=== PATIENT | female | born 1975 | race American Indian/Alaskan Native ===

== ENCOUNTER 2021-09-10 21:57 | Inpatient (IN) ==
[2021-09-11 01:19] LABS: Basophils % 0.2 % (0.0-0.8); Eosinophils % 0.2 % (0.00-10.9); Hematocrit 25.4 VOL% (35.7-47.0); Hemoglobin 8.7 GM/DL (12.0-16.0); Immature Granulocytes % 1.3 %; Immature Granulocytes Absolute 0.12 #; Lymphocytes # 1.4 10*3/uL (1.4-4.0); Lymphocytes % 15.7 % (21.3-54.2); Mean Corpuscular HGB Conc 34.3 GM/DL (32-36); Mean Corpuscular Volume 89.8 FL (87-102); Mean Platelet Volume 12.2 FL (9.6-12.0); Monocytes % 11.3 % (1.7-12.7); NRBC # 0.03 10*3/uL; Neutrophils % 71.3 % (38.7-73.9); Platelet Count 60 T/CUMM (130-400); Red Blood Count 2.83 MC/CUMM (3.8-5.5)
[2021-09-11 01:40] LABS: Calcium 6.7 MG/DL (8.5-10.1); Osmolality,Calculated 269.4 MOS/KG (273-304); Potassium 2.6 MMOL/L (3.5-5.1)
[2021-09-11 01:59] LABS: Lymphocytes 29 % (20-55)
[2021-09-11 02:00] LABS: Platelet Estimate Decreased; Total Cells Counted 100
[2021-09-11 02:03] LABS: INR 1.1; PT Patient Result 12.3 SECS (10.5-12.0); Partial Thromboplastin Time 30.6 SECS (23.8-32.1)
[2021-09-11] MEDS ORDERED: MAGNESIUM SULF RIDER 4 GM/100 ML PREMIX IV PRN (02:11)
[2021-09-11] MEDS ORDERED: ONDANSETRON 4 MG/2 ML VIAL IV PRN (02:11)
[2021-09-11] MEDS ORDERED: hydrALAZINE 20 MG/1 ML VIAL IV PRN (02:11)
[2021-09-11] MEDS ORDERED: MAGNESIUM SULF RIDER 2 GM/50 ML PREMIX IV PRN (02:11)
[2021-09-11] MEDS ORDERED: SIMETHICONE CHEW 125 MG TABLET PO PRN (02:11)
[2021-09-11] MEDS ORDERED: GLUCAGON 1 MG VIAL IM PRN (02:11)
[2021-09-11] MEDS ORDERED: HYDROmorphone 1 MG/1 ML SYRINGE IV PRN (02:19)
[2021-09-11] MEDS ORDERED: DEXTROSE 10% 250 ML BAG IV PRN (02:22)
[2021-09-11] MEDS: ENOXAPARIN 40 MG/0.4 ML SYRINGE SUBCUT SCH (03:47)
[2021-09-11] MEDS: SODIUM CHLOR 0.9% KCL 20 MEQ 20 MEQ/1,000 ML BAG IV SCH ×2 (03:47→16:02)
[2021-09-11] MEDS: PIPERACILLIN/TAZOBACTAM 3,375 MG in SODIUM CHLORIDE 0.9% 100 ML IV SCH ×3 (03:47→21:43)
[2021-09-11 05:11] LABS: Albumin 1.5 G/DL (3.4-5.0); Bilirubin,Direct 0.46 MG/DL (0.0-0.20); Bilirubin,Indirect 0.4 MG/DL (0.0-1.0); Bilirubin,Total 0.9 MG/DL (0.20-1.00); Total Protein 7.8 G/DL (6.4-8.2)
[2021-09-11] MEDS: POTASSIUM CHLORIDE 20 MEQ TABLET PO SCH ×3 (05:46→21:43)
[2021-09-11 06:17] LABS: Hepatitis B Surface Ag Quant 0.19 Index; Hepatitis B Surface Ag Result Non-Reactive (NonReactive); Hepatitis C Virus Ab Quant 0.09 Index; Hepatitis C Virus Ab Result Non-Reactive (NonReactive)
[2021-09-11 07:20] LABS: RBC,Urine 8 /HPF (0-4); Squamous Epithelial Cell,Urine Occasional /HPF (0-10)
[2021-09-11 07:21] LABS: Bilirubin,Urine Negative (Negative); Blood, Urine Large mg/dL (Negative); Glucose,Urine (UA) Negative (Negative); Ketones,Urine Negative (Negative); Nitrite,Urine Negative (Negative); Protein,Urine 30 mg/dL (Negative); Urine Appearance Clear (Clear); Urine Color Yellow (Yellow)
[2021-09-11] MEDS: POTASSIUM CHLORIDE RIDER 10 MEQ/100 ML PREMIX IV PRN ×3 (08:15→17:33)
[2021-09-11] MEDS: INSULIN REGULAR 100 UNIT/ML SUBCUT SCH ×4 (08:31→21:44)
[2021-09-11] MEDS: DOCUSATE SODIUM 100 MG CAPSULE PO SCH ×2 (09:01→21:43)
[2021-09-11 09:04] LABS: Calcium 6.8 MG/DL (8.5-10.1); Osmolality,Calculated 272.1 MOS/KG (273-304); Potassium 3.2 MMOL/L (3.5-5.1)
[2021-09-11] MEDS: PANTOPRAZOLE 40 MG TABLET PO SCH (09:06)
[2021-09-11 11:23] LABS: INR 1.1; PT Patient Result 12.3 SECS (10.5-12.0)
[2021-09-11] MEDS ORDERED: fentaNYL 100 MCG/2 ML VIAL IV ONE (13:00)
[2021-09-11] MEDS ORDERED: MIDAZOLAM 2 MG/2 ML VIAL IV ONE (13:00)
[2021-09-11] MEDS ORDERED: DIAZEPAM 5 MG TABLET PO ONE (13:00)
[2021-09-11] MEDS: SODIUM CHLORIDE 0.45% 1,000 ML IV SCH (13:30)
[2021-09-12] MEDS: ENOXAPARIN 40 MG/0.4 ML SYRINGE SUBCUT SCH (03:59)
[2021-09-12 04:58] LABS: Basophils % 0.3 % (0.0-0.8); Eosinophils # 0.1 10*3/uL (0.0-0.87); Eosinophils % 0.8 % (0.00-10.9); Hematocrit 22.1 VOL% (35.7-47.0); Hemoglobin 7.3 GM/DL (12.0-16.0); Immature Granulocytes % 1.5 %; Immature Granulocytes Absolute 0.22 #; Lymphocytes # 1.6 10*3/uL (1.4-4.0); Lymphocytes % 11.2 % (21.3-54.2); Mean Corpuscular Volume 93.2 FL (87-102); Mean Platelet Volume 10.6 FL (9.6-12.0); Monocytes # 1.6 10*3/uL (0.11-0.8); Monocytes % 10.8 % (1.7-12.7); NRBC # 0.03 10*3/uL; Neutrophils % 75.4 % (38.7-73.9); Platelet Count 78 T/CUMM (130-400); Red Blood Count 2.37 MC/CUMM (3.8-5.5); Red Cell Distribution Width 15.4 % (9.3-17.3); White Blood Count 14.6 T/CUMM (4-12)
[2021-09-12 05:20] LABS: Band Neutrophils 1 % (0-10); Hypochromia 1+; Lymphocytes 10 % (20-55); Total Cells Counted 100
[2021-09-12 05:21] LABS: Microcytosis 1+; Platelet Estimate Decreased
[2021-09-12] MEDS: PIPERACILLIN/TAZOBACTAM 3,375 MG in SODIUM CHLORIDE 0.9% 100 ML IV SCH ×3 (05:30→21:08)
[2021-09-12 05:35] LABS: Albumin 1.4 G/DL (3.4-5.0); Bilirubin,Total 0.9 MG/DL (0.20-1.00); Calcium 6.8 MG/DL (8.5-10.1); Osmolality,Calculated 262.8 MOS/KG (273-304); Potassium 3.9 MMOL/L (3.5-5.1); Total Protein 7.5 G/DL (6.4-8.2)
[2021-09-12] MEDS: SODIUM CHLOR 0.9% KCL 20 MEQ 20 MEQ/1,000 ML BAG IV SCH ×3 (07:15→18:15)
[2021-09-12] MEDS: INSULIN REGULAR 100 UNIT/ML SUBCUT SCH ×4 (08:18→21:08)
[2021-09-12] MEDS: DOCUSATE SODIUM 100 MG CAPSULE PO SCH ×2 (09:08→21:07)
[2021-09-12] MEDS: PANTOPRAZOLE 40 MG TABLET PO SCH (09:08)
[2021-09-12] MEDS: POTASSIUM CHLORIDE 20 MEQ TABLET PO SCH ×2 (09:08→21:07)
[2021-09-12 11:39] LABS: Hematocrit 21.3 VOL% (35.7-47.0)
[2021-09-12 13:23] LABS: Hematocrit 20.7 VOL% (35.7-47.0); Hemoglobin 6.8 GM/DL (12.0-16.0)
[2021-09-12 13:40] LABS: Calcium 6.9 MG/DL (8.5-10.1); Osmolality,Calculated 264.7 MOS/KG (273-304); Potassium 4.2 MMOL/L (3.5-5.1)
[2021-09-12] MEDS: SODIUM CHLORIDE 0.45% 1,000 ML IV SCH (14:43)
[2021-09-12] MEDS ORDERED: SODIUM CHLORIDE 0.9% 1,000 ML IV PRN (14:49)
[2021-09-12] MEDS: LACTULOSE 20 GM/30 ML UDCUP PO SCH ×2 (14:57→21:07)
[2021-09-13 05:23] LABS: Basophils % 0.3 % (0.0-0.8); Eosinophils # 0.1 10*3/uL (0.0-0.87); Hematocrit 24.3 VOL% (35.7-47.0); Hemoglobin 7.9 GM/DL (12.0-16.0); Immature Granulocytes % 1.7 %; Lymphocytes # 1.6 10*3/uL (1.4-4.0); Lymphocytes % 13.3 % (21.3-54.2); Mean Corpuscular HGB Conc 32.5 GM/DL (32-36); Mean Platelet Volume 10.9 FL (9.6-12.0); Monocytes % 8.1 % (1.7-12.7); NRBC # 0.02 10*3/uL; Neutrophils % 75.6 % (38.7-73.9); Platelet Count 102 T/CUMM (130-400); Red Blood Count 2.64 MC/CUMM (3.8-5.5); Red Cell Distribution Width 15.9 % (9.3-17.3); White Blood Count 12.1 T/CUMM (4-12)
[2021-09-13] MEDS: PIPERACILLIN/TAZOBACTAM 3,375 MG in SODIUM CHLORIDE 0.9% 100 ML IV SCH ×3 (05:33→22:18)
[2021-09-13] MEDS: SODIUM CHLOR 0.9% KCL 20 MEQ 20 MEQ/1,000 ML BAG IV SCH (05:34)
[2021-09-13 05:45] LABS: Albumin 1.3 G/DL (3.4-5.0); Bilirubin,Total 1.2 MG/DL (0.20-1.00); Calcium 7.4 MG/DL (8.5-10.1); Osmolality,Calculated 261.7 MOS/KG (273-304); Total Protein 7.4 G/DL (6.4-8.2)
[2021-09-13] MEDS: INSULIN REGULAR 100 UNIT/ML SUBCUT SCH ×4 (08:23→21:40)
[2021-09-13] MEDS: LACTULOSE 20 GM/30 ML UDCUP PO SCH (08:32)
[2021-09-13] MEDS: DOCUSATE SODIUM 100 MG CAPSULE PO SCH ×2 (08:32→21:40)
[2021-09-13] MEDS: PANTOPRAZOLE 40 MG TABLET PO SCH (08:32)
[2021-09-13] MEDS: POTASSIUM CHLORIDE 20 MEQ TABLET PO SCH (08:32)
[2021-09-13] MEDS: SODIUM CHLORIDE 0.9% 1,000 ML IV SCH ×2 (12:15→22:16)
[2021-09-13] MEDS: SODIUM CHLORIDE 0.45% 1,000 ML IV SCH (12:19)
[2021-09-13] MEDS: ACETAMINOPHEN 325 MG TABLET PO PRN (12:30)
[2021-09-14 04:53] LABS: Basophils % 0.2 % (0.0-0.8); Eosinophils # 0.2 10*3/uL (0.0-0.87); Eosinophils % 2.2 % (0.00-10.9); Hematocrit 22.8 VOL% (35.7-47.0); Hemoglobin 7.3 GM/DL (12.0-16.0); Immature Granulocytes % 1.2 %; Lymphocytes # 1.3 10*3/uL (1.4-4.0); Lymphocytes % 14.9 % (21.3-54.2); Mean Corpuscular Volume 92.3 FL (87-102); Mean Platelet Volume 10.4 FL (9.6-12.0); Monocytes # 0.9 10*3/uL (0.11-0.8); Monocytes % 10.3 % (1.7-12.7); Neutrophils % 71.2 % (38.7-73.9); Platelet Count 113 T/CUMM (130-400); Red Blood Count 2.47 MC/CUMM (3.8-5.5); Red Cell Distribution Width 15.9 % (9.3-17.3); White Blood Count 8.6 T/CUMM (4-12)
[2021-09-14 05:14] LABS: Band Neutrophils 1 % (0-10); Eosinophils 1 % (0-10); Hypochromia Slight; Lymphocytes 14 % (20-55); Total Cells Counted 100
[2021-09-14 05:15] LABS: Microcytosis 1+
[2021-09-14 05:20] LABS: Albumin 1.3 G/DL (3.4-5.0); Bilirubin,Total 0.8 MG/DL (0.20-1.00); Calcium 7.2 MG/DL (8.5-10.1); Osmolality,Calculated 266.5 MOS/KG (273-304); Potassium 4.4 MMOL/L (3.5-5.1); Total Protein 7.1 G/DL (6.4-8.2)
[2021-09-14] MEDS: PIPERACILLIN/TAZOBACTAM 3,375 MG in SODIUM CHLORIDE 0.9% 100 ML IV SCH ×3 (05:54→21:27)
[2021-09-14] MEDS: LACTULOSE 20 GM/30 ML UDCUP PO SCH (08:53)
[2021-09-14] MEDS: DOCUSATE SODIUM 100 MG CAPSULE PO SCH ×2 (08:53→21:57)
[2021-09-14] MEDS: PANTOPRAZOLE 40 MG TABLET PO SCH (08:53)
[2021-09-14] MEDS: INSULIN REGULAR 100 UNIT/ML SUBCUT SCH ×4 (09:24→21:57)
[2021-09-14] MEDS: SODIUM CHLORIDE 0.9% 1,000 ML IV SCH ×2 (09:25→17:00)
[2021-09-14] MEDS: SODIUM CHLORIDE 0.45% 1,000 ML IV SCH (13:02)
[2021-09-15] MEDS: PIPERACILLIN/TAZOBACTAM 3,375 MG in SODIUM CHLORIDE 0.9% 100 ML IV SCH ×3 (05:25→20:30)
[2021-09-15 08:17] LABS: Basophils % 0.4 % (0.0-0.8); Eosinophils # 0.2 10*3/uL (0.0-0.87); Eosinophils % 2.3 % (0.00-10.9); Hematocrit 22.5 VOL% (35.7-47.0); Hemoglobin 7.3 GM/DL (12.0-16.0); Immature Granulocytes % 1.3 %; Lymphocytes # 1.3 10*3/uL (1.4-4.0); Lymphocytes % 16.1 % (21.3-54.2); Mean Corpuscular HGB Conc 32.4 GM/DL (32-36); Mean Corpuscular Volume 91.8 FL (87-102); Neutrophils % 66.9 % (38.7-73.9); Platelet Count 125 T/CUMM (130-400); Red Blood Count 2.45 MC/CUMM (3.8-5.5); Red Cell Distribution Width 15.9 % (9.3-17.3); White Blood Count 7.7 T/CUMM (4-12)
[2021-09-15] MEDS: INSULIN REGULAR 100 UNIT/ML SUBCUT SCH ×4 (08:28→20:41)
[2021-09-15 08:34] LABS: Osmolality,Calculated 261.5 MOS/KG (273-304); Potassium 4.4 MMOL/L (3.5-5.1)
[2021-09-15] MEDS ORDERED: LACTULOSE 20 GM/30 ML UDCUP PO SCH (09:00)
[2021-09-15] MEDS: DOCUSATE SODIUM 100 MG CAPSULE PO SCH ×2 (09:18→20:42)
[2021-09-15] MEDS: PANTOPRAZOLE 40 MG TABLET PO SCH (09:18)
[2021-09-15] MEDS: SODIUM CHLORIDE 0.45% 1,000 ML IV SCH (13:01)
[2021-09-15] MEDS: SODIUM CHLORIDE 0.9% 1,000 ML IV SCH ×2 (13:01→16:35)
[2021-09-15 19:22] LABS: Bacteria,Urine Occasional /HPF (Few); RBC,Urine 24 /HPF (0-4); Squamous Epithelial Cell,Urine Occasional /HPF (0-10)
[2021-09-15 19:23] LABS: Bilirubin,Urine Negative (Negative); Blood, Urine Large mg/dL (Negative); Glucose,Urine (UA) Negative (Negative); Ketones,Urine Negative (Negative); Nitrite,Urine Negative (Negative); Protein,Urine Negative (Negative); Urine Appearance Clear (Clear); Urine Color Yellow (Yellow); Urine pH 6.5 (4.5-8.0)
[2021-09-15] MEDS: POLYETHYLENE GLYCOL POWDER 17 GM PACK PO SCH (20:30)
[2021-09-15] MEDS: LACTULOSE 20 GM/30 ML UDCUP PO SCH (20:30)
[2021-09-15] MEDS: ALBUTEROL 2.5 MG/3 ML NEB RESP TX SCH ×2 (21:00→21:38)
[2021-09-16 04:48] LABS: Basophils % 0.4 % (0.0-0.8); Eosinophils # 0.1 10*3/uL (0.0-0.87); Eosinophils % 1.5 % (0.00-10.9); Hematocrit 22.3 VOL% (35.7-47.0); Hemoglobin 7.3 GM/DL (12.0-16.0); Immature Granulocytes % 0.8 %; Immature Granulocytes Absolute 0.06 #; Lymphocytes # 1.3 10*3/uL (1.4-4.0); Lymphocytes % 18.2 % (21.3-54.2); Mean Corpuscular HGB Conc 32.7 GM/DL (32-36); Mean Corpuscular Volume 91.4 FL (87-102); Mean Platelet Volume 9.9 FL (9.6-12.0); Monocytes % 14.1 % (1.7-12.7); Platelet Count 123 T/CUMM (130-400); Red Blood Count 2.44 MC/CUMM (3.8-5.5); Red Cell Distribution Width 15.6 % (9.3-17.3); White Blood Count 7.2 T/CUMM (4-12)
[2021-09-16 05:18] LABS: Albumin 1.4 G/DL (3.4-5.0); Bilirubin,Total 0.8 MG/DL (0.20-1.00); Calcium 7.2 MG/DL (8.5-10.1); Osmolality,Calculated 259.7 MOS/KG (273-304); Potassium 4.2 MMOL/L (3.5-5.1)
[2021-09-16] MEDS: ENOXAPARIN 40 MG/0.4 ML SYRINGE SUBCUT SCH (06:13)
[2021-09-16] MEDS: PIPERACILLIN/TAZOBACTAM 3,375 MG in SODIUM CHLORIDE 0.9% 100 ML IV SCH ×3 (06:14→21:16)
[2021-09-16] MEDS: ALBUTEROL 2.5 MG/3 ML NEB RESP TX SCH ×2 (07:28→14:05)
[2021-09-16] MEDS: LACTULOSE 20 GM/30 ML UDCUP PO SCH ×2 (09:29→21:19)
[2021-09-16] MEDS: POLYETHYLENE GLYCOL POWDER 17 GM PACK PO SCH ×2 (09:29→21:19)
[2021-09-16] MEDS: ACETAMINOPHEN 325 MG TABLET PO PRN (09:30)
[2021-09-16] MEDS: DOCUSATE SODIUM 100 MG CAPSULE PO SCH ×2 (09:30→21:19)
[2021-09-16] MEDS: PANTOPRAZOLE 40 MG TABLET PO SCH (09:30)
[2021-09-16] MEDS: LINACLOTIDE 145 MCG CAPSULE PO SCH (09:30)
[2021-09-16] MEDS: SODIUM CHLORIDE 0.9% 1,000 ML IV SCH ×3 (09:31→21:16)
[2021-09-16] MEDS: INSULIN REGULAR 100 UNIT/ML SUBCUT SCH ×4 (10:33→23:36)
[2021-09-16] MEDS: SODIUM CHLORIDE 0.45% 1,000 ML IV SCH (13:58)
[2021-09-17 05:04] LABS: Basophils % 0.7 % (0.0-0.8); Eosinophils # 0.1 10*3/uL (0.0-0.87); Eosinophils % 1.9 % (0.00-10.9); Hematocrit 23.1 VOL% (35.7-47.0); Hemoglobin 7.5 GM/DL (12.0-16.0); Immature Granulocytes % 0.7 %; Immature Granulocytes Absolute 0.04 #; Lymphocytes % 17.4 % (21.3-54.2); Mean Corpuscular HGB Conc 32.5 GM/DL (32-36); Mean Corpuscular Volume 93.1 FL (87-102); Mean Platelet Volume 10.2 FL (9.6-12.0); Monocytes # 0.9 10*3/uL (0.11-0.8); Monocytes % 15.2 % (1.7-12.7); Neutrophils % 64.1 % (38.7-73.9); Platelet Count 141 T/CUMM (130-400); Red Blood Count 2.48 MC/CUMM (3.8-5.5); Red Cell Distribution Width 15.9 % (9.3-17.3); White Blood Count 5.9 T/CUMM (4-12)
[2021-09-17] MEDS: PIPERACILLIN/TAZOBACTAM 3,375 MG in SODIUM CHLORIDE 0.9% 100 ML IV SCH ×3 (05:11→21:02)
[2021-09-17] MEDS: ENOXAPARIN 40 MG/0.4 ML SYRINGE SUBCUT SCH (05:11)
[2021-09-17 05:20] LABS: Albumin 1.6 G/DL (3.4-5.0); Bilirubin,Total 0.7 MG/DL (0.20-1.00); Calcium 6.9 MG/DL (8.5-10.1); Osmolality,Calculated 262.4 MOS/KG (273-304); Potassium 3.8 MMOL/L (3.5-5.1); Total Protein 8.5 G/DL (6.4-8.2)
[2021-09-17] MEDS: ALBUTEROL 2.5 MG/3 ML NEB RESP TX SCH ×4 (07:38→23:29)
[2021-09-17] MEDS: DOCUSATE SODIUM 100 MG CAPSULE PO SCH ×2 (09:51→21:02)
[2021-09-17] MEDS: PANTOPRAZOLE 40 MG TABLET PO SCH (09:51)
[2021-09-17] MEDS: LINACLOTIDE 145 MCG CAPSULE PO SCH (09:51)
[2021-09-17] MEDS: INSULIN REGULAR 100 UNIT/ML SUBCUT SCH ×4 (10:55→21:03)
[2021-09-17] MEDS: LACTULOSE 20 GM/30 ML UDCUP PO SCH ×2 (10:56→21:02)
[2021-09-17] MEDS: POLYETHYLENE GLYCOL POWDER 17 GM PACK PO SCH (10:57)
[2021-09-17] MEDS: SODIUM CHLORIDE 0.9% 1,000 ML IV SCH ×3 (11:36→15:00)
[2021-09-17] MEDS: SODIUM CHLORIDE 0.45% 1,000 ML IV SCH (11:37)
[2021-09-18 04:06] LABS: Basophils % 0.9 % (0.0-0.8); Eosinophils # 0.1 10*3/uL (0.0-0.87); Eosinophils % 2.1 % (0.00-10.9); Hematocrit 23.4 VOL% (35.7-47.0); Hemoglobin 7.5 GM/DL (12.0-16.0); Immature Granulocytes % 0.7 %; Immature Granulocytes Absolute 0.03 #; Lymphocytes # 1.1 10*3/uL (1.4-4.0); Lymphocytes % 24.4 % (21.3-54.2); Mean Corpuscular HGB Conc 32.1 GM/DL (32-36); Mean Corpuscular Volume 92.9 FL (87-102); Mean Platelet Volume 9.6 FL (9.6-12.0); Monocytes # 0.5 10*3/uL (0.11-0.8); Monocytes % 11.6 % (1.7-12.7); Neutrophils % 60.3 % (38.7-73.9); Platelet Count 130 T/CUMM (130-400); Red Blood Count 2.52 MC/CUMM (3.8-5.5); White Blood Count 4.3 T/CUMM (4-12)
[2021-09-18] MEDS: ENOXAPARIN 40 MG/0.4 ML SYRINGE SUBCUT SCH (05:25)
[2021-09-18] MEDS: PIPERACILLIN/TAZOBACTAM 3,375 MG in SODIUM CHLORIDE 0.9% 100 ML IV SCH ×3 (05:26→20:50)
[2021-09-18] MEDS: SODIUM CHLORIDE 0.9% 1,000 ML IV SCH ×3 (05:46→20:53)
[2021-09-18 05:50] LABS: Albumin 1.5 G/DL (3.4-5.0); Bilirubin,Total 0.8 MG/DL (0.20-1.00); Calcium 7.7 MG/DL (8.5-10.1); Osmolality,Calculated 262.4 MOS/KG (273-304); Potassium 3.7 MMOL/L (3.5-5.1); Total Protein 8.6 G/DL (6.4-8.2)
[2021-09-18] MEDS: ALBUTEROL 2.5 MG/3 ML NEB RESP TX SCH ×2 (07:22→14:00)
[2021-09-18] MEDS: PANTOPRAZOLE 40 MG TABLET PO SCH (09:54)
[2021-09-18] MEDS: DOCUSATE SODIUM 100 MG CAPSULE PO SCH ×2 (09:54→20:43)
[2021-09-18] MEDS: LINACLOTIDE 145 MCG CAPSULE PO SCH (09:56)
[2021-09-18] MEDS: LACTULOSE 20 GM/30 ML UDCUP PO SCH ×2 (09:56→20:50)
[2021-09-18] MEDS: INSULIN REGULAR 100 UNIT/ML SUBCUT SCH ×4 (10:52→20:34)
[2021-09-18] MEDS ORDERED: DIAZEPAM 5 MG TABLET PO ONE (13:36)
[2021-09-18] MEDS: SODIUM CHLORIDE 0.45% 1,000 ML IV SCH ×2 (14:07→14:12)
[2021-09-19] MEDS: ALBUTEROL 2.5 MG/3 ML NEB RESP TX SCH ×4 (00:05→23:36)
[2021-09-19] MEDS: ENOXAPARIN 40 MG/0.4 ML SYRINGE SUBCUT SCH (04:25)
[2021-09-19] MEDS: PIPERACILLIN/TAZOBACTAM 3,375 MG in SODIUM CHLORIDE 0.9% 100 ML IV SCH ×3 (04:25→20:36)
[2021-09-19 05:25] LABS: Basophils # 0.1 10*3/uL (0.0-0.2); Basophils % 1.4 % (0.0-0.8); Eosinophils # 0.1 10*3/uL (0.0-0.87); Eosinophils % 3.1 % (0.00-10.9); Hematocrit 23.2 VOL% (35.7-47.0); Hemoglobin 7.4 GM/DL (12.0-16.0); Immature Granulocytes % 0.6 %; Immature Granulocytes Absolute 0.02 #; Lymphocytes # 0.8 10*3/uL (1.4-4.0); Lymphocytes % 23.7 % (21.3-54.2); Mean Corpuscular HGB Conc 31.9 GM/DL (32-36); Mean Corpuscular Volume 93.2 FL (87-102); Mean Platelet Volume 9.8 FL (9.6-12.0); Monocytes # 0.5 10*3/uL (0.11-0.8); Monocytes % 12.7 % (1.7-12.7); Neutrophils % 58.5 % (38.7-73.9); Platelet Count 133 T/CUMM (130-400); Red Blood Count 2.49 MC/CUMM (3.8-5.5); Red Cell Distribution Width 15.7 % (9.3-17.3); White Blood Count 3.5 T/CUMM (4-12)
[2021-09-19 08:16] LABS: Eosinophils # 0.1 10*3/uL (0.0-0.87); Eosinophils % 2.9 % (0.00-10.9); Hematocrit 22.3 VOL% (35.7-47.0); Immature Granulocytes % 0.5 %; Immature Granulocytes Absolute 0.02 #; Lymphocytes # 1.2 10*3/uL (1.4-4.0); Lymphocytes % 29.9 % (21.3-54.2); Mean Corpuscular HGB Conc 31.4 GM/DL (32-36); Mean Corpuscular Volume 93.3 FL (87-102); Monocytes # 0.4 10*3/uL (0.11-0.8); Monocytes % 10.2 % (1.7-12.7); Neutrophils % 55.5 % (38.7-73.9); Platelet Count 130 T/CUMM (130-400); Red Blood Count 2.39 MC/CUMM (3.8-5.5); Red Cell Distribution Width 15.9 % (9.3-17.3); White Blood Count 3.8 T/CUMM (4-12)
[2021-09-19] MEDS: INSULIN REGULAR 100 UNIT/ML SUBCUT SCH ×4 (08:41→20:37)
[2021-09-19] MEDS: LINACLOTIDE 145 MCG CAPSULE PO SCH (09:41)
[2021-09-19] MEDS: LACTULOSE 20 GM/30 ML UDCUP PO SCH ×2 (09:43→20:37)
[2021-09-19] MEDS: PANTOPRAZOLE 40 MG TABLET PO SCH (09:43)
[2021-09-19] MEDS: DOCUSATE SODIUM 100 MG CAPSULE PO SCH ×2 (09:43→20:37)
[2021-09-19] MEDS: SODIUM CHLORIDE 0.9% 1,000 ML IV SCH ×2 (12:09→20:38)
[2021-09-19] MEDS ORDERED: SODIUM CHLORIDE 0.9% 1,000 ML IV PRN (14:21)
[2021-09-19] MEDS: SODIUM CHLORIDE 0.45% 1,000 ML IV SCH (14:30)
[2021-09-19] MEDS: ACETAMINOPHEN 325 MG TABLET PO PRN (23:43)
[2021-09-20 02:08] LABS: Bilirubin,Total 0.6 MG/DL (0.20-1.00)
[2021-09-20] MEDS: SODIUM CHLORIDE 0.9% 1,000 ML IV SCH ×3 (04:32→20:56)
[2021-09-20 04:50] LABS: Basophils # 0.1 10*3/uL (0.0-0.2); Basophils % 1.5 % (0.0-0.8); Eosinophils # 0.1 10*3/uL (0.0-0.87); Eosinophils % 3.2 % (0.00-10.9); Hematocrit 23.2 VOL% (35.7-47.0); Hemoglobin 7.5 GM/DL (12.0-16.0); Immature Granulocytes % 0.6 %; Immature Granulocytes Absolute 0.02 #; Mean Corpuscular HGB Conc 32.3 GM/DL (32-36); Mean Corpuscular Volume 91.3 FL (87-102); Mean Platelet Volume 10.1 FL (9.6-12.0); Monocytes # 0.5 10*3/uL (0.11-0.8); Monocytes % 13.8 % (1.7-12.7); Neutrophils % 50.9 % (38.7-73.9); Platelet Count 120 T/CUMM (130-400); Red Blood Count 2.54 MC/CUMM (3.8-5.5); Red Cell Distribution Width 15.8 % (9.3-17.3); White Blood Count 3.4 T/CUMM (4-12)
[2021-09-20 05:10] LABS: Bacteria,Urine Occasional /HPF (Few); RBC,Urine 1 /HPF (0-4); Squamous Epithelial Cell,Urine Occasional /HPF (0-10)
[2021-09-20 05:11] LABS: Albumin 1.6 G/DL (3.4-5.0); Bilirubin,Total 0.5 MG/DL (0.20-1.00); Bilirubin,Urine Negative (Negative); Glucose,Urine (UA) Negative (Negative); Ketones,Urine Negative (Negative); Nitrite,Urine Negative (Negative); Potassium 3.2 MMOL/L (3.5-5.1); Protein,Urine Negative (Negative); Total Protein 8.3 G/DL (6.4-8.2); Urine Appearance Clear (Clear); Urine Color Yellow (Yellow); Urine Specific Gravity 1.015 (1.001-1.035)
[2021-09-20 05:12] LABS: Blood, Urine Trace mg/dL (Negative); Urine Urobilinogen 0.2 eU/dL (<2.0)
[2021-09-20] MEDS: POTASSIUM CHLORIDE RIDER 10 MEQ/100 ML PREMIX IV PRN (05:24)
[2021-09-20] MEDS: PIPERACILLIN/TAZOBACTAM 3,375 MG in SODIUM CHLORIDE 0.9% 100 ML IV SCH ×3 (05:29→20:56)
[2021-09-20] MEDS: ENOXAPARIN 40 MG/0.4 ML SYRINGE SUBCUT SCH (05:29)
[2021-09-20] MEDS ORDERED: POTASSIUM CHLORIDE 20 MEQ TABLET PO ONE (07:36)
[2021-09-20] MEDS: ALBUTEROL 2.5 MG/3 ML NEB RESP TX SCH ×3 (07:37→23:40)
[2021-09-20] MEDS: INSULIN REGULAR 100 UNIT/ML SUBCUT SCH ×4 (08:00→20:57)
[2021-09-20] MEDS: amLODIPine 5 MG TABLET PO SCH (08:36)
[2021-09-20] MEDS: LINACLOTIDE 145 MCG CAPSULE PO SCH (08:36)
[2021-09-20] MEDS: PANTOPRAZOLE 40 MG TABLET PO SCH (08:36)
[2021-09-20] MEDS: LACTULOSE 20 GM/30 ML UDCUP PO SCH ×2 (08:37→20:57)
[2021-09-20] MEDS: DOCUSATE SODIUM 100 MG CAPSULE PO SCH ×2 (08:37→20:57)
[2021-09-21] MEDS: PIPERACILLIN/TAZOBACTAM 3,375 MG in SODIUM CHLORIDE 0.9% 100 ML IV SCH ×3 (04:03→21:20)
[2021-09-21] MEDS: ENOXAPARIN 40 MG/0.4 ML SYRINGE SUBCUT SCH (04:03)
[2021-09-21 05:01] LABS: Basophils # 0.1 10*3/uL (0.0-0.2); Basophils % 2.1 % (0.0-0.8); Eosinophils # 0.1 10*3/uL (0.0-0.87); Eosinophils % 4.6 % (0.00-10.9); Hemoglobin 7.3 GM/DL (12.0-16.0); Immature Granulocytes % 0.4 %; Immature Granulocytes Absolute 0.01 #; Lymphocytes # 0.8 10*3/uL (1.4-4.0); Lymphocytes % 27.7 % (21.3-54.2); Mean Corpuscular HGB Conc 31.7 GM/DL (32-36); Mean Corpuscular Volume 92.4 FL (87-102); Monocytes # 0.3 10*3/uL (0.11-0.8); Monocytes % 12.1 % (1.7-12.7); Neutrophils % 53.1 % (38.7-73.9); Platelet Count 107 T/CUMM (130-400); Red Blood Count 2.49 MC/CUMM (3.8-5.5); Red Cell Distribution Width 16.1 % (9.3-17.3); White Blood Count 2.8 T/CUMM (4-12)
[2021-09-21 05:16] LABS: Calcium 7.7 MG/DL (8.5-10.1); Osmolality,Calculated 265.1 MOS/KG (273-304); Potassium 3.5 MMOL/L (3.5-5.1)
[2021-09-21] MEDS: SODIUM CHLORIDE 0.9% 1,000 ML IV SCH ×2 (05:28→13:45)
[2021-09-21 05:36] LABS: Platelet Estimate Adequate
[2021-09-21 05:37] LABS: Anisocytosis 2+
[2021-09-21] MEDS: ALBUTEROL 2.5 MG/3 ML NEB RESP TX SCH ×3 (07:32→23:00)
[2021-09-21] MEDS: INSULIN REGULAR 100 UNIT/ML SUBCUT SCH ×4 (07:35→21:01)
[2021-09-21] MEDS: amLODIPine 5 MG TABLET PO SCH (08:35)
[2021-09-21] MEDS: LINACLOTIDE 145 MCG CAPSULE PO SCH (08:35)
[2021-09-21] MEDS: DOCUSATE SODIUM 100 MG CAPSULE PO SCH ×2 (08:35→21:21)
[2021-09-21] MEDS: PANTOPRAZOLE 40 MG TABLET PO SCH (08:35)
[2021-09-21] MEDS: LACTULOSE 20 GM/30 ML UDCUP PO SCH ×2 (08:57→21:20)
[2021-09-21] MEDS: FAMOTIDINE 20 MG TABLET PO SCH (21:20)
[2021-09-22] MEDS: DOCUSATE SODIUM 100 MG CAPSULE PO SCH ×3 (00:06→20:39)
[2021-09-22] MEDS: SODIUM CHLORIDE 0.9% 1,000 ML IV SCH (05:11)
[2021-09-22] MEDS: ENOXAPARIN 40 MG/0.4 ML SYRINGE SUBCUT SCH (05:12)
[2021-09-22] MEDS: PIPERACILLIN/TAZOBACTAM 3,375 MG in SODIUM CHLORIDE 0.9% 100 ML IV SCH ×2 (05:23→17:13)
[2021-09-22 06:10] LABS: Basophils # 0.1 10*3/uL (0.0-0.2); Eosinophils # 0.1 10*3/uL (0.0-0.87); Eosinophils % 5.3 % (0.00-10.9); Hematocrit 23.1 VOL% (35.7-47.0); Hemoglobin 7.5 GM/DL (12.0-16.0); Immature Granulocytes % 0.8 %; Immature Granulocytes Absolute 0.02 #; Lymphocytes # 0.8 10*3/uL (1.4-4.0); Lymphocytes % 32.9 % (21.3-54.2); Mean Corpuscular HGB Conc 32.5 GM/DL (32-36); Mean Corpuscular Volume 92.8 FL (87-102); Mean Platelet Volume 10.1 FL (9.6-12.0); Monocytes # 0.3 10*3/uL (0.11-0.8); Monocytes % 13.4 % (1.7-12.7); Neutrophils % 45.6 % (38.7-73.9); Platelet Count 100 T/CUMM (130-400); Red Blood Count 2.49 MC/CUMM (3.8-5.5); Red Cell Distribution Width 16.3 % (9.3-17.3); White Blood Count 2.5 T/CUMM (4-12)
[2021-09-22 06:28] LABS: Anisocytosis 1+; Microcytosis 1+
[2021-09-22 06:29] LABS: Ovalocytes Slight; Polychromasia Few
[2021-09-22 06:30] LABS: Platelet Estimate Decreased
[2021-09-22] MEDS: ALBUTEROL 2.5 MG/3 ML NEB RESP TX SCH ×3 (07:20→23:50)
[2021-09-22] MEDS: INSULIN REGULAR 100 UNIT/ML SUBCUT SCH ×4 (08:19→20:40)
[2021-09-22 08:51] LABS: Calcium 7.5 MG/DL (8.5-10.1); Potassium 3.4 MMOL/L (3.5-5.1)
[2021-09-22] MEDS: LINACLOTIDE 145 MCG CAPSULE PO SCH (10:50)
[2021-09-22] MEDS: FAMOTIDINE 20 MG TABLET PO SCH ×2 (10:50→20:50)
[2021-09-22] MEDS: LACTULOSE 20 GM/30 ML UDCUP PO SCH ×2 (10:50→20:39)
[2021-09-22] MEDS ORDERED: MAGNESIUM SULF RIDER 2 GM/50 ML PREMIX IV ONE (11:00)
[2021-09-22] MEDS ORDERED: POTASSIUM CHLORIDE 20 MEQ TABLET PO ONE (11:00)
[2021-09-22] MEDS: SODIUM CHLORIDE 0.45% 1,000 ML IV SCH ×3 (12:29→20:54)
[2021-09-22] MEDS: amLODIPine 5 MG TABLET PO SCH (13:14)
[2021-09-22] MEDS ORDERED: LIDOCAINE 2% 5 ML VIAL ONE ×2 (14:17→15:03)
[2021-09-22] MEDS ORDERED: MIDAZOLAM 2 MG/2 ML VIAL ONE (14:17)
[2021-09-22] MEDS ORDERED: propofoL 200 MG/20 ML VIAL IV ONE (14:17)
[2021-09-22] MEDS ORDERED: fentaNYL 100 MCG/2 ML VIAL ONE (14:17)
[2021-09-22] MEDS ORDERED: ONDANSETRON 4 MG/2 ML VIAL ONE (14:28)
[2021-09-22] MEDS ORDERED: KETAMINE 500 MG/10 ML VIAL ONE (14:37)
[2021-09-22] MEDS ORDERED: LIDOCAINE 2% TOP JELLY 20 ML VIAL INTRAURETH ONE (14:41)
[2021-09-22] MEDS ORDERED: GENTAMICIN 80 MG/2 ML VIAL ONE (14:48)
[2021-09-23] MEDS: PIPERACILLIN/TAZOBACTAM 3,375 MG in SODIUM CHLORIDE 0.9% 100 ML IV SCH ×3 (01:17→17:24)
[2021-09-23] MEDS: ENOXAPARIN 40 MG/0.4 ML SYRINGE SUBCUT SCH (05:25)
[2021-09-23 05:57] LABS: Basophils % 0.8 % (0.0-0.8); Eosinophils # 0.2 10*3/uL (0.0-0.87); Eosinophils % 6.6 % (0.00-10.9); Hematocrit 23.7 VOL% (35.7-47.0); Hemoglobin 7.3 GM/DL (12.0-16.0); Immature Granulocytes % 1.2 %; Immature Granulocytes Absolute 0.03 #; Lymphocytes # 0.7 10*3/uL (1.4-4.0); Lymphocytes % 27.2 % (21.3-54.2); Mean Corpuscular HGB Conc 30.8 GM/DL (32-36); Mean Platelet Volume 10.1 FL (9.6-12.0); Monocytes # 0.3 10*3/uL (0.11-0.8); Monocytes % 11.5 % (1.7-12.7); Neutrophils % 52.7 % (38.7-73.9); Platelet Count 103 T/CUMM (130-400); Red Blood Count 2.52 MC/CUMM (3.8-5.5); Red Cell Distribution Width 16.1 % (9.3-17.3); White Blood Count 2.4 T/CUMM (4-12)
[2021-09-23 06:11] LABS: Calcium 7.6 MG/DL (8.5-10.1); Osmolality,Calculated 267.1 MOS/KG (273-304); Potassium 3.5 MMOL/L (3.5-5.1)
[2021-09-23] MEDS: ALBUTEROL 2.5 MG/3 ML NEB RESP TX SCH ×2 (07:04→13:55)
[2021-09-23] MEDS: INSULIN REGULAR 100 UNIT/ML SUBCUT SCH ×4 (09:06→20:06)
[2021-09-23] MEDS: SODIUM CHLORIDE 0.45% 1,000 ML IV SCH ×4 (09:06→20:23)
[2021-09-23] MEDS: amLODIPine 5 MG TABLET PO SCH (09:08)
[2021-09-23] MEDS: LINACLOTIDE 145 MCG CAPSULE PO SCH (09:08)
[2021-09-23] MEDS: DOCUSATE SODIUM 100 MG CAPSULE PO SCH ×2 (09:08→20:27)
[2021-09-23] MEDS: FAMOTIDINE 20 MG TABLET PO SCH ×2 (09:08→20:27)
[2021-09-23] MEDS: LACTULOSE 20 GM/30 ML UDCUP PO SCH ×2 (09:11→20:27)
[2021-09-24] MEDS: PIPERACILLIN/TAZOBACTAM 3,375 MG in SODIUM CHLORIDE 0.9% 100 ML IV SCH ×2 (02:13→09:57)
[2021-09-24] MEDS: ENOXAPARIN 40 MG/0.4 ML SYRINGE SUBCUT SCH (04:32)
[2021-09-24 05:28] LABS: Basophils # 0.1 10*3/uL (0.0-0.2); Basophils % 2.2 % (0.0-0.8); Eosinophils # 0.2 10*3/uL (0.0-0.87); Eosinophils % 7.1 % (0.00-10.9); Hemoglobin 7.8 GM/DL (12.0-16.0); Immature Granulocytes % 1.3 %; Immature Granulocytes Absolute 0.03 #; Lymphocytes # 0.9 10*3/uL (1.4-4.0); Lymphocytes % 37.9 % (21.3-54.2); Mean Corpuscular HGB Conc 32.5 GM/DL (32-36); Mean Platelet Volume 10.2 FL (9.6-12.0); Monocytes # 0.3 10*3/uL (0.11-0.8); Monocytes % 11.6 % (1.7-12.7); Neutrophils % 39.9 % (38.7-73.9); Platelet Count 97 T/CUMM (130-400); Red Blood Count 2.61 MC/CUMM (3.8-5.5); Red Cell Distribution Width 16.2 % (9.3-17.3); White Blood Count 2.2 T/CUMM (4-12)
[2021-09-24 05:41] LABS: Calcium 7.7 MG/DL (8.5-10.1); Osmolality,Calculated 269.8 MOS/KG (273-304); Potassium 3.4 MMOL/L (3.5-5.1)
[2021-09-24] MEDS: SODIUM CHLORIDE 0.45% 1,000 ML IV SCH ×4 (05:52→22:20)
[2021-09-24 07:03] LABS: Eosinophils 4 % (0-10); Lymphocytes 30 % (20-55); Platelet Estimate Decreased; Total Cells Counted 100
[2021-09-24] MEDS: ALBUTEROL 2.5 MG/3 ML NEB RESP TX SCH ×3 (07:20→14:00)
[2021-09-24] MEDS: FAMOTIDINE 20 MG TABLET PO SCH ×2 (09:54→20:25)
[2021-09-24] MEDS: DOCUSATE SODIUM 100 MG CAPSULE PO SCH ×2 (09:54→20:25)
[2021-09-24] MEDS: amLODIPine 5 MG TABLET PO SCH (09:54)
[2021-09-24] MEDS: INSULIN REGULAR 100 UNIT/ML SUBCUT SCH ×4 (09:55→20:25)
[2021-09-24] MEDS: LACTULOSE 20 GM/30 ML UDCUP PO SCH ×2 (09:55→20:25)
[2021-09-24] MEDS: LINACLOTIDE 145 MCG CAPSULE PO SCH (09:55)
[2021-09-24] MEDS: LEVOFLOXACIN 500 MG TABLET PO SCH (14:00)
[2021-09-25] MEDS: ALBUTEROL 2.5 MG/3 ML NEB RESP TX SCH ×4 (00:22→23:53)
[2021-09-25] MEDS: SODIUM CHLORIDE 0.45% 1,000 ML IV SCH ×3 (01:53→22:37)
[2021-09-25] MEDS: ENOXAPARIN 40 MG/0.4 ML SYRINGE SUBCUT SCH (04:18)
[2021-09-25 05:20] LABS: Basophils % 1.3 % (0.0-0.8); Eosinophils # 0.1 10*3/uL (0.0-0.87); Eosinophils % 5.1 % (0.00-10.9); Hematocrit 25.3 VOL% (35.7-47.0); Hemoglobin 8.1 GM/DL (12.0-16.0); Immature Granulocytes % 1.3 %; Immature Granulocytes Absolute 0.03 #; Lymphocytes % 42.2 % (21.3-54.2); Mean Corpuscular Volume 94.4 FL (87-102); Mean Platelet Volume 10.6 FL (9.6-12.0); Monocytes # 0.3 10*3/uL (0.11-0.8); Monocytes % 13.5 % (1.7-12.7); Neutrophils % 36.6 % (38.7-73.9); Platelet Count 88 T/CUMM (130-400); Red Blood Count 2.68 MC/CUMM (3.8-5.5); Red Cell Distribution Width 16.9 % (9.3-17.3); White Blood Count 2.4 T/CUMM (4-12)
[2021-09-25 06:04] LABS: Band Neutrophils 2 % (0-10); Lymphocytes 42 % (20-55); Total Cells Counted 100
[2021-09-25 06:05] LABS: Hypochromia 1+; Microcytosis 1+
[2021-09-25 06:06] LABS: Anisocytosis 1+; Polychromasia Slight
[2021-09-25 06:07] LABS: Platelet Estimate Decreased
[2021-09-25] MEDS: INSULIN REGULAR 100 UNIT/ML SUBCUT SCH ×4 (08:32→21:46)
[2021-09-25] MEDS: amLODIPine 5 MG TABLET PO SCH (09:23)
[2021-09-25] MEDS: LEVOFLOXACIN 500 MG TABLET PO SCH (09:23)
[2021-09-25] MEDS: FAMOTIDINE 20 MG TABLET PO SCH ×2 (09:23→21:40)
[2021-09-25] MEDS: LINACLOTIDE 145 MCG CAPSULE PO SCH (09:23)
[2021-09-25] MEDS: DOCUSATE SODIUM 100 MG CAPSULE PO SCH ×2 (09:23→21:40)
[2021-09-25] MEDS: LACTULOSE 20 GM/30 ML UDCUP PO SCH ×2 (09:24→21:41)
[2021-09-26] MEDS: ENOXAPARIN 40 MG/0.4 ML SYRINGE SUBCUT SCH (04:12)
[2021-09-26 05:27] LABS: Basophils % 1.2 % (0.0-0.8); Eosinophils # 0.2 10*3/uL (0.0-0.87); Eosinophils % 6.2 % (0.00-10.9); Hematocrit 25.3 VOL% (35.7-47.0); Hemoglobin 8.1 GM/DL (12.0-16.0); Immature Granulocytes % 0.8 %; Immature Granulocytes Absolute 0.02 #; Lymphocytes # 1.3 10*3/uL (1.4-4.0); Mean Corpuscular Volume 94.1 FL (87-102); Mean Platelet Volume 10.3 FL (9.6-12.0); Monocytes # 0.4 10*3/uL (0.11-0.8); Monocytes % 14.4 % (1.7-12.7); Neutrophils % 26.4 % (38.7-73.9); Platelet Count 102 T/CUMM (130-400); Red Blood Count 2.69 MC/CUMM (3.8-5.5); Red Cell Distribution Width 16.8 % (9.3-17.3); White Blood Count 2.6 T/CUMM (4-12)
[2021-09-26 05:44] LABS: Osmolality,Calculated 273.7 MOS/KG (273-304); Potassium 3.3 MMOL/L (3.5-5.1)
[2021-09-26 05:55] LABS: Atypical Lymphocytes Few; Eosinophils 7 % (0-10); Lymphocytes 57 % (20-55); Total Cells Counted 100
[2021-09-26 05:56] LABS: Anisocytosis 1+
[2021-09-26 05:57] LABS: Hypochromia Slight; Platelet Estimate Adequate
[2021-09-26] MEDS: ALBUTEROL 2.5 MG/3 ML NEB RESP TX SCH ×3 (07:34→21:58)
[2021-09-26] MEDS: DOCUSATE SODIUM 100 MG CAPSULE PO SCH ×2 (09:40→21:22)
[2021-09-26] MEDS: amLODIPine 5 MG TABLET PO SCH (09:40)
[2021-09-26] MEDS: LACTULOSE 20 GM/30 ML UDCUP PO SCH ×2 (09:40→21:24)
[2021-09-26] MEDS: FAMOTIDINE 20 MG TABLET PO SCH ×2 (09:40→21:23)
[2021-09-26] MEDS: LINACLOTIDE 145 MCG CAPSULE PO SCH (09:40)
[2021-09-26] MEDS: LEVOFLOXACIN 500 MG TABLET PO SCH (09:40)
[2021-09-26] MEDS: INSULIN REGULAR 100 UNIT/ML SUBCUT SCH ×4 (09:45→21:21)
[2021-09-26] MEDS ORDERED: POTASSIUM CHLORIDE 20 MEQ TABLET PO ONE (10:04)
[2021-09-26] MEDS: SODIUM CHLORIDE 0.45% 1,000 ML IV SCH ×3 (10:35→20:48)
[2021-09-27] MEDS: SODIUM CHLORIDE 0.45% 1,000 ML IV SCH ×3 (04:00→12:48)
[2021-09-27] MEDS: ENOXAPARIN 40 MG/0.4 ML SYRINGE SUBCUT SCH (04:16)
[2021-09-27] MEDS: ALBUTEROL 2.5 MG/3 ML NEB RESP TX SCH (07:14)
[2021-09-27] MEDS: INSULIN REGULAR 100 UNIT/ML SUBCUT SCH ×2 (08:18→12:48)
[2021-09-27] MEDS: DOCUSATE SODIUM 100 MG CAPSULE PO SCH (09:10)
[2021-09-27] MEDS: LEVOFLOXACIN 500 MG TABLET PO SCH (09:11)
[2021-09-27] MEDS: FAMOTIDINE 20 MG TABLET PO SCH (09:11)
[2021-09-27] MEDS: LINACLOTIDE 145 MCG CAPSULE PO SCH (09:11)
[2021-09-27] MEDS: amLODIPine 5 MG TABLET PO SCH (09:11)
[2021-09-27] MEDS: LACTULOSE 20 GM/30 ML UDCUP PO SCH (09:12)
[2021-09-27 15:58] VITALS: BP 120/80
== END 2021-09-27 16:27 | DRG 659 ==
LOC: N.TELEN 23:27 → SUATTDRO 23:27
PROVIDERS: ADMIT Emergency Medicine; ATTEND Internal Medicine